=== PATIENT | male | born 1950 | race Caucasian/White ===

== ENCOUNTER 2025-06-23 09:32 | Day surgery (SDC) | payer MEDICARE ==
[2025-06-17 10:39] VITALS: BP 117/56
--- NOTE | 2025-06-17 13:03 | NUR ---
SPOKE WITH DR WILSON STAFF. PT WAS SUPPOSED TO STOP CLOPEDIGRIL IN FEBRUARY. THEY WILL CONTACT [facility] TO CONFIRM DC AND STOP DISPENSING. PT INSTRUCTED TO STOP DRUG AT THIS TIME.
[~2025-06-23] VITALS: Ht 172.7 cm; Wt 68.0 kg
[~2025-06-23 09:32] MED LIST: ATORVASTATIN CA80 MG PO; IBLOOD GLUCOSE TEST STRIP 1 EA TEST VI PRN; LACTATED RINGER'S 1,000 ML IV SCH; LIDOCAINE HCL 1% 5 ML SDV INJ ONE; METOPROLOL SUCC50 MG PO; NORVASC5 MG PO; PLAVIX75 MG PO; PROTONIX40 M1 PO; VAZALORE81 MG PO; ZESTRIL40 MG PO
[2025-06-23 10:30] VITALS: BP 137/72
[2025-06-23] MEDS ORDERED: LIDOCAINE HCL 2% 5 ML SDV ONE (12:42)
--- NOTE | 2025-06-23 14:18 | NUR ---
06/23/25 1418 Parris Hercules 1414-PATIENT ARRIVED TO PACU ON 6L NC PLACED ON 3L NC RR EVEN NONAROUSABLE ORAL AIRWAY IN PLACE LAYING LEFT LATERAL ABDOMEN SOFT. IVF INFUSING. SR WITH [facility].
[2025-06-23 14:59] VITALS: BP 144/80
--- NOTE | 2025-06-24 07:54 | OR ---
[facility] [address] [place], [place] [address] Signed DATE OF OPERATION: 06/23/2025 SURGEON: Bayron Covarrubias DO PREOPERATIVE DIAGNOSES: 1. Unexplained abdominal pain. 2. Colon cancer screening. POSTOPERATIVE DIAGNOSES: 1. Unexplained abdominal pain. 2. Colon cancer screening. 3. LA grade B esophagitis. 4. Gastritis. 5. Profound diverticulum. PROCEDURES PERFORMED: 1. Esophagogastroduodenoscopy with biopsy of the esophagogastric junction and stomach body. 2. Colonoscopy. ANESTHESIA: IV sedation. ESTIMATED BLOOD LOSS: None. DRAINS: None. COMPLICATIONS: None. DESCRIPTION OF PROCEDURE: The patient was brought to the GI lab, placed in supine position. After induction of IV sedation through preanesthetized oropharynx and a bite block, the Olympus video endoscope was then introduced into the mouth, directed to the length of the esophagus into the distal esophagus. Some LA grade B esophagitis was noted. No ulcerations were appreciated. Random biopsies of the GE junction were taken and passed off the field for pathologic review. The scope was then placed into the stomach. The stomach was insufflated and exploration was carried out in the distal aspect of the stomach. The Electronically Signed By: BAYRON COVARRUBIAS DO 06/24/25 0754 PATIENT NAME: HORACIO PAUL OPERATIVE REPORT DATE OF : 54 REPORT #: [id number] PHYSICIAN: BAYRON COVARRUBIAS DO PCP: CELIA HARRIS MD REPORT IS CONFIDENTIAL AND NOT TO BE RELEASED WITHOUT AUTHORIZATION [facility] [address] [place], [place] [address] Signed distal aspect of the stomach had some profound punctate gastritis, random gastric biopsies taken, passed off the field. Scope was retroflexed on itself. No evidence of hiatal hernia was appreciated. Scope was then placed through the pylorus, 1st and 2nd portion of duodenum. No ulcerations or lesions were noted in the duodenum. Scope was then advanced and brought back into the stomach. Stomach was decompressed and the scope was withdrawn. The patient was then placed in the left lateral position, padded to the satisfaction of anesthesia. Olympus video colonoscope was introduced into the rectum and then while insufflating and under direct visualization, the scope was then advanced to the rectosigmoid, sigmoid colon, descending colon, transverse colon, ascending colon into the cecum. The colon was insufflated and exploration of mucosal surface was carried out. The ascending colon and sigmoid were essentially unremarkable. Scope was brought back and passed hepatic flexure and transverse colon. No intrinsic or extrinsic mass was noted. Scope was then brought back into the descending colon and multiple large diverticula were noted. No evidence of diverticulitis is present. No other intrinsic or extrinsic masses were appreciated. Scope was then brought back into the sigmoid colon, where multiple large diverticula were noted. There were entire wall in areas of the sigmoid colon. No evidence of diverticulitis was present. The rectosigmoid had some diverticulum as well. No evidence of diverticulitis. No evidence of other intrinsic or extrinsic masses appreciated. The scope was brought back into the rectum and withdrawn. The patient tolerated the procedure well and went to recovery room in satisfactory condition. Bayron Covarrubias DO RS/MODL /[id number] Copies: ~ Electronically Signed By: BAYRON COVARRUBIAS DO 06/24/25 0754 PATIENT NAME: HORACIO PAUL OPERATIVE REPORT DATE OF : 54 REPORT #: [id number] PHYSICIAN: BAYRON COVARRUBIAS DO PCP: CELIA HARRIS MD REPORT IS CONFIDENTIAL AND NOT TO BE RELEASED WITHOUT AUTHORIZATION
--- NOTE | 2025-06-25 14:59 | PATH ---
[facility] [address] [place], [place] [address] Signed SPECIMEN(S): A GE JUNCTION BIOPSY SPECIMEN(S): B RANDOM STOMACH SPECIMEN SOURCE: A. GE JUNCTION BIOPSY B. RANDOM STOMACH CLINICAL HISTORY: LA grade B esophagitis, gastritis, diverticulosis FINAL PATHOLOGIC DIAGNOSIS: A. 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 B. Stomach, random biopsy - Minimal chronic gastritis with vascular congestion, negative for active inflammation or intestinal metaplasia. - No H. pylori bacteria are detected by HE stain. AMB MICROSCOPIC EXAMINATION: Histologic sections of all submitted blocks are examined by light microscopy. These findings, together with the gross examination, support the pathologic diagnosis. GROSS DESCRIPTION: A. The specimen, labeled and designated "Werner, GE junction biopsy," is received in formalin and consists of one baltazar soft tissue fragment, 0.2 cm. Entirely submitted in (A1). B. The specimen, labeled and designated "Werner, random stomach," is received in formalin and consists of one baltazar soft tissue fragment, 0.5 cm. Entirely submitted in (B1). VB (under the direct supervision of a pathologist) The Gross Description was prepared using a voice recognition system. The report was reviewed for accuracy; however, sound-alike word errors, addition and/or deletions may occur. If there is any question about this report, please contact Client Services. ADDITIONAL NOTES: Immunohistochemical and/or in situ hybridization studies if performed in this case included appropriate positive controls that reacted as expected. This test was developed and its performance PATIENT NAME: HORACIO PAUL PATHOLOGY DATE OF : 54 REPORT #: [id number] PHYSICIAN: PREETHI PAGAN PCP: CELIA HARRIS MD REPORT IS CONFIDENTIAL AND NOT TO BE RELEASED WITHOUT AUTHORIZATION [address], [place] [address] Signed characteristics determined by [facility] It has not been cleared or approved by the U.S. Food and Drug Administration. The FDA has determined that such clearance or approval is not necessary. This test is used for clinical purposes. It should not be regarded as investigational or for research. [facility] is certified under the Clinical Laboratory Improvement Amendments of 1988 (CLIA) as qualified to perform high complexity clinical laboratory testing. PERFORMING LABORATORY: Technical component was performed by [facility] [address] [place] [address] (CLIA# [id number]). Professional interpretation was performed by [facility] - [address] [id number] Diagnostician: Gregoria Armendariz MD Pathologist Electronically Signed 06/25/2025 Copies: ~ PATIENT NAME: HORACIO PAUL PATHOLOGY DATE OF : 54 REPORT #: [id number] PHYSICIAN: PREETHI PATHOLOGY PCP: CELIA HARRIS MD REPORT IS CONFIDENTIAL AND NOT TO BE RELEASED WITHOUT AUTHORIZATION
== END 2025-06-23 15:05 | disposition home or self-care (01) ==
LOC: DS 09:32
PROVIDERS: ATTEND Surgery
PROC: 0DJD8ZZ Inspection of Lower Intestinal Tract, Via Natural or Artificial Opening Endoscopic (ICD-10-PCS; 2025-06-23)
PROC: 0DB48ZX Excision of Esophagogastric Junction, Via Natural or Artificial Opening Endoscopic, Diagnostic (ICD-10-PCS; principal; 2025-06-23 11:15)
PROC: 0DB68ZX Excision of Stomach, Via Natural or Artificial Opening Endoscopic, Diagnostic (ICD-10-PCS; 2025-06-23 11:15)
DX: Z12.11 Encounter for screening for malignant neoplasm of colon (principal); K29.50 Unspecified chronic gastritis without bleeding; K21.00 Gastro-esophageal reflux disease with esophagitis, without bleeding; K57.30 Diverticulosis of large intestine without perforation or abscess without bleeding; I10 Essential (primary) hypertension; E78.2 Mixed hyperlipidemia; Z79.899 Other long term (current) drug therapy
CPT/HCPCS: 00813; J2003; J2704; J7121